=== PATIENT | male | born 1990 | race African-American/Black ===

== ENCOUNTER 2018-06-16 21:46 | Emergency (ER) | payer OTHER ==
[~2018-06-16] VITALS: Ht 185.4 cm; Wt 79.5 kg
[2018-06-16 21:51] VITALS: BP 115/66
[2018-06-16] MEDS ORDERED: HYDR-3686 PO (23:10)
== END 2018-06-16 23:20 | disposition home or self-care (01) ==
LOC: ER 21:48
DX: G47.00 Insomnia, unspecified (principal); F12.90 Cannabis use, unspecified, uncomplicated; Z85.850 Personal history of malignant neoplasm of thyroid; Z88.0 Allergy status to penicillin
CPT/HCPCS: 99283

== ENCOUNTER 2018-06-21 19:17 | Emergency (ER) | payer MEDICAID, OTHER ==
[~2018-06-21] VITALS: Ht 185.4 cm; Wt 80.0 kg
[~2018-06-21 19:17] MED LIST: HYDR-3686 PO
[2018-06-21 19:20] VITALS: BP 117/83
[2018-06-21] MEDS ORDERED: CBD Oil (19:54)
--- NOTE | 2018-06-21 19:56 | NUR ---
States that he recently moved here from [place], and has been "have multiple seizures every day" which he takes CBD oil for. Current complaints include Right sided abd pain, that moved to neck, that moved to right hand, that moved to arm, that moved to jaw, that moved to head, that moved to chest, and is now causing right hand numbness (per patient). States he is not taking medication as he "don't believe in medication", girlfriend states "if he needs a medication, it needs to be liquid"
[2018-06-21] MEDS ORDERED: CYCL-1 PO (20:24)
[2018-06-21] MEDS ORDERED: ketorolac trometh inj. 60 MG/2 ML VIAL IM ONE (20:25)
== END 2018-06-21 20:36 | disposition home or self-care (01) ==
LOC: ER 19:18
DX: M62.830 Muscle spasm of back (principal); R07.81 Pleurodynia; R05 Cough; F12.90 Cannabis use, unspecified, uncomplicated; Z88.0 Allergy status to penicillin; Z79.899 Other long term (current) drug therapy
CPT/HCPCS: 96372; 99283; J1885

== ENCOUNTER 2018-10-23 18:08 | Emergency (ER) | payer MEDICAID ==
[~2018-10-23] VITALS: Ht 185.4 cm; Wt 72.0 kg
[~2018-10-23 18:08] MED LIST changes: +CBD Oil; +CYCL-1 PO; -HYDR-3686 PO; +ONDA4TAB6 PO
[2018-10-23] MEDS ORDERED: OMEP40CA37 PO (20:20)
[2018-10-23 20:28] VITALS: BP 117/80
== END 2018-10-23 20:30 | disposition home or self-care (01) ==
LOC: ER 18:09
DX: R10.13 Epigastric pain (principal); F12.90 Cannabis use, unspecified, uncomplicated; F17.200 Nicotine dependence, unspecified, uncomplicated; Z79.899 Other long term (current) drug therapy; Z88.0 Allergy status to penicillin
CPT/HCPCS: 99282

== ENCOUNTER 2019-01-13 09:53 | Emergency (ER) | payer MEDICAID ==
[~2019-01-13] VITALS: Ht 185.4 cm; Wt 27.3 kg
[2019-01-13] MEDS ORDERED: pantoprazole 40mg Tablet.DR PO ONE (10:25)
[2019-01-13] MEDS ORDERED: LIDOcaine Viscous 15ml cup PO ONE (10:25)
[2019-01-13] MEDS ORDERED: normal saline 1000ML IV soln IVB ONE (10:25)
[2019-01-13] MEDS ORDERED: mag hydrox/Alum hydrox/simeth 30ml oral suspension PO ONE (10:25)
[2019-01-13 11:04] LABS: BASOPHILS # (AUTO) 0.1 X10'3 (0-0.2); BASOPHILS % (AUTO) 0.7 % (0-1); EOSINOPHILS # (AUTO) 0.3 X10'3 (0-0.9); EOSINOPHILS % (AUTO) 3.4 % (0-6); HEMATOCRIT 40.8 % (42.0-52.0); LYMPHOCYTES # (AUTO) 2.9 X10'3 (1.1-4.8); LYMPHOCYTES % (AUTO) 37.5 % (21-51); MEAN CORPUSCULAR HEMOGLOBIN 30.8 PG (27.0-31.0); MEAN CORPUSCULAR HGB CONC 34.3 g/dL (33.0-36.5); MEAN CORPUSCULAR VOLUME 89.9 FL (78-98); MONOCYTES # (AUTO) 0.6 X10'3 (0-0.9); MONOCYTES % (AUTO) 7.7 % (2-12); NEUTROPHILS # (AUTO) 3.9 X10'3 (1.8-7.7); NEUTROPHILS % (AUTO) 50.7 % (42-75); PLATELET COUNT 267 X10'3 (140-440); RED BLOOD COUNT 4.54 X10'6 (4.70-6.10); WHITE BLOOD COUNT 7.8 X10'3 (4.5-11.0)
[2019-01-13 11:18] LABS: ALANINE AMINOTRANSFERASE 20 U/L (12-78); ALBUMIN 3.9 G/DL (3.4-5.0); ALBUMIN/GLOBULIN RATIO 1.1 (1.1-1.5); ALKALINE PHOSPHATASE 60 IU/L (46-116); ANION GAP 8 (8-16); ASPARTATE AMINO TRANSFERASE 8 U/L (10-37); BILIRUBIN,TOTAL 0.4 MG/DL (0.1-1.0); BLOOD UREA NITROGEN 14 MG/DL (7-18); BUN/CREATININE RATIO 10.8 (5.4-32.0); CALCIUM 8.8 MG/DL (8.5-10.1); CHLORIDE 104 MMOL/L (99-107); GLUCOSE 95 MG/DL (70-104); LIPASE 56 U/L (73-393); POTASSIUM 3.9 MMOL/L (3.5-5.1); SODIUM 139 MMOL/L (135-145); TOTAL CARBON DIOXIDE 26.6 MMOL/L (24-32); TOTAL PROTEIN 7.6 G/DL (6.4-8.2); eGFR 80 ML/MIN
[2019-01-13] MEDS ORDERED: ketorolac tromethamine 15mg/ml inj. IM ONE (11:55)
[2019-01-13] MEDS ORDERED: LORazepam 2 mg/ml vial IV ONE (12:00)
[2019-01-13] MEDS ORDERED: OMEP40CA13 PO (12:31)
[2019-01-13 12:36] VITALS: BP 125/79
== END 2019-01-13 12:38 | disposition home or self-care (01) ==
LOC: ER 09:54
DX: R10.84 Generalized abdominal pain (principal); R55 Syncope and collapse; F17.200 Nicotine dependence, unspecified, uncomplicated; Z88.0 Allergy status to penicillin; Z79.899 Other long term (current) drug therapy
CPT/HCPCS: 36415; 80053; 83690; 85025; 96361; 96372; 96374; 99283; J1885; J2060; J7030

== ENCOUNTER 2019-06-25 22:01 | Emergency (ER) | payer MEDICAID ==
[~2019-06-25] VITALS: Ht 188 cm; Wt 75.0 kg
[2019-06-25] MEDS ORDERED: NO HOME MEDS (22:18)
[2019-06-25 23:47] VITALS: BP 152/65
== END 2019-06-25 23:45 | disposition home or self-care (01) ==
LOC: ER 22:02
DX: S60.222A Contusion of left hand, initial encounter (principal); Z98.890 Other specified postprocedural states; Z86.69 Personal history of other diseases of the nervous system and sense organs; Z88.0 Allergy status to penicillin; W23.0XXA Caught, crushed, jammed, or pinched between moving objects, initial encounter; Y93.89 Activity, other specified; Y92.89 Other specified places as the place of occurrence of the external cause; Y99.8 Other external cause status
CPT/HCPCS: 29125; 73130; 99283